=== PATIENT | female | born 1985 | race Caucasian/White ===

== ENCOUNTER 2019-02-09 07:14 | Emergency (ER) | payer SELFPAY ==
[~2019-02-09] VITALS: Ht 172.7 cm; Wt 63.5 kg
[2019-02-09 07:20] VITALS: BP 132/83
--- NOTE | 2019-02-09 07:20 | NUR ---
ED Nurse Note: pt brought by for medical clearance. c/o left ankle pain. per pt, " I think, I twisted it." no deformity noted. swelling noted. ICE applied. AAO x4. respirations even and non-labored noted. will wait for the further order.
--- NOTE | 2019-02-09 07:40 | NUR ---
ED Nurse Note: ADVE band and air splint applied by JORDY Jorgensen per Dr. Zavala ordered.
--- NOTE | 2019-02-09 07:43 | Emergency Room Report ---
History of Present Illness General Chief Complaint: Medical Clearance Source: Patient Present Illness HPI The patient was arrested. She started limping after being arrested. She complains that she twisted her left ankle earlier today. She has not looked at it but feels that it swollen. She is able to ambulate on it. She does not point to one spot that is more tender. Both sides are sore. She has not taken any medications. She was treated for scratch on her inner right arm by paramedics. Her last tetanus was 2 months ago. The patient takes an antidepressant. She denies suicidal or homicidal ideation. The patient denies fevers, chills, cough. Allergies: Coded Allergies: No Known Allergies (Unverified , 02/09/19) Patient History Past Medical History: see triage record, other - Depression Social History: Reports: smoking Social History Narrative arrest for vandalism Reviewed Nursing Documentation: PMH: Agreed; PSxH: Agreed Nursing Documentation-PMH Past Medical History: No Stated History Review of Systems Constitutional: Denies: fever Musculoskeletal: Reports: see HPI Skin: Reports: see HPI Psychiatric: Reports: see HPI Neurological: Denies: numbness Physical Exam Vital Signs Date Time Temp Pulse Resp B/P (MAP) Pulse Ox O2 Delivery O2 Flow Rate FiO2 02/09/19 07:15 98.4 80 18 132/83 (99) 98 Room Air Sp02 EP Interpretation: reviewed, normal General Appearance: well appearing, no apparent distress, GCS 15 Head: normocephalic, atraumatic Eyes: bilateral eye normal inspection, bilateral eye PERRL, bilateral eye EOMI ENT: moist mucus membranes Neck: full range of motion Respiratory: speaking full sentences Cardiovascular #1: regular rate, rhythm Cardiovascular #2: 2+ dorsalis pedis (L) - Good capillary refill Gastrointestinal: normal inspection Musculoskeletal: digits/nails normal, normal range of motion, no calf tenderness, swelling - Bilateral ankle, tenderness - Bilateral ankle without point tenderness. Neurologic: alert, distal neuro normal, grossly normal Psychiatric: no suicidal/homicidal ideation, depressed affect Skin: normal color, other - Ecchymoses around abrasion, abrasions - Right upper inner arm Medical Decision Making Diagnostic Impression: Primary Impression: Left ankle sprain Qualified Codes: S93.402A - Sprain of unspecified ligament of left ankle, initial encounter Additional Impression: Abrasion of right arm Qualified Codes: S40.811A - Abrasion of right upper arm, initial encounter ER Course Patient presents with left ankle pain from twisting. Based on [place] ankle rules x-rays are not indicated at this time. An Eric wrap is applied and the patient is given a dose of Motrin. Is applied by me. Position and tension are good. Distal neurovascular is checked by me and normal. Before discharge the patient requested a second Eric wrap to be placed over the sock. Instead an air splint was applied. She had improvement with this. Distal neurovascular was checked by me and normal after air splint application. The patient is stable for outpatient observation and treatment. Last Vital Signs Date Time Temp Pulse Resp B/P (MAP) Pulse Ox O2 Delivery O2 Flow Rate FiO2 02/09/19 08:04 98.4 80 18 132/83 98 Room Air Status: improved Disposition: D/C TO [facility] IN [facility] Condition: Improved Scripts Bacitracin (Bacitracin) 28.4 Gm Oint...g. 1 APPLIC TOPIC BID, #20 GM Prov: Justo Zavala MD 02/09/19 Ibuprofen* (MOTRIN*) 600 Mg Tablet 600 MG ORAL Q6H PRN for For Pain, #20 TAB 0 Refills Prov: Justo Zavala MD 02/09/19 Referrals: NOT CHOSEN IPA/,REFERRING (PCP) Justo Zavala MD Feb 09, 2019 07:43
[2019-02-09] MEDS ORDERED: IBUPROFEN600 MG ORAL (07:46)
[2019-02-09] MEDS ORDERED: BACITRACIN15 GM TOPIC (07:46)
--- NOTE | 2019-02-09 07:55 | NUR ---
ED Nurse Note: pt refused the motrin. per pt " I want tylenol." Dr. Zavala notified.
[2019-02-09 08:04] VITALS: BP 132/83
--- NOTE | 2019-02-09 08:05 | NUR ---
ER DISCHARGE NOTE: Patient is cleared to be discharged per CLARICE with , pt is aox4, on room air, with stable vital signs. pt was given dc and prescription instructions, pt was able to verbalize understanding, pt id band removed without complications. pt is able to ambulate with steady gait. pt took all belongings.
== END 2019-02-09 08:06 ==
LOC: EMR 07:27
DX: S93.402A Sprain of unspecified ligament of left ankle, initial encounter (principal); S40.811A Abrasion of right upper arm, initial encounter; X58.XXXA Exposure to other specified factors, initial encounter; Y92.9 Unspecified place or not applicable; F17.200 Nicotine dependence, unspecified, uncomplicated
CPT/HCPCS: 99282